=== PATIENT | male | born 1950 | race Caucasian/White ===

== ENCOUNTER → 2021-05-08 14:51 | Outpatient (BNVA) | payer OTHER, SELFPAY | PROVIDERS: PCP Nurse Practitioner; Visit Provider Internal Medicine | DX: D50.9 Iron deficiency anemia, unspecified (principal); Z01.812 Encounter for preprocedural laboratory examination; Z20.822 Contact with and (suspected) exposure to COVID-19 | CPT/HCPCS: 87635 ==

== ENCOUNTER 2021-05-14 08:54 | Day surgery (SDC) | payer OTHER, SELFPAY ==
[2021-05-10 09:27] VITALS: BMI 26.4
--- NOTE | 2021-05-14 09:00 | W.PM.OPSFHP ---
Same Day Surgery H&P Indication for Procedure/HPI DATE OF PROCEDURE: May 14, 2021 CHIEF COMPLAINT/INDICATIONFOR SURGICAL PROCEDURE: Iron deficiency anemia PREOP DIAGNOSIS: iron def anemia PLANNED PROCEDRUE: Operation Date: 05/14/21 10:30 Proposed Procedures p EGD/colon 99221 00039 D50.9(Not Applicable) - Alonzo Guzman MD s Colonoscopy(Not Applicable) - Alonzo Guzman MD Medications/Allergies* Home Medications Medication Instructions Recorded Confirmed Type Vitamin D3 25 mg PO DAILY 05/10/21 05/10/21 History iron 50 mg PO DAILY 05/10/21 05/10/21 History zinc 50 mg PO DAILY 05/10/21 05/10/21 History Allergies/Adverse Reactions Allergy/AdvReac Type Severity Reaction Status Date / Time chloramphenicol Allergy Intermediate Unknown Verified 05/10/21 09:13 Penicillins Allergy Intermediate unknown Verified 05/10/21 09:13 Pertinent History/Comorbid Conditions* Family History (Updated 05/02/21 @ 09:14 by MALIHA Handy) Diabetes Mother Cancer Social History Smoking and tobacco status: never smoked Alcohol intake: current Alcohol intake frequency: holidays/special occasions only Alcohol type: wine Desire information about alcohol rehabilitation?: Yes Adopted: No Marital status: Number of children: 2 service: Yes History of recent travel: No Pertinent Exam Findings alert, oriented x 3, clear to auscultation bilaterally, regular rate & rhythm, operative site marked and procedure specific exam findings Recommendations Surgery/Procedure today Coding Level of Care Code Acute [employer] for Mo Biswas
--- NOTE | 2021-05-14 09:11 | ANES.PREANE2 ---
Pre-Anesthetic Assessment Pre-Anesthetic Assessment: Height/Weight: Height 1.75 m Weight 81.193 kg Preop Diagnosis: iron def anemia Proposed Procedure: Operation Date: 05/14/21 10:30 Proposed Procedures p EGD/colon 09580 [id number] D50.9(Not Applicable) - Alonzo Guzman MD s Colonoscopy(Not Applicable) - Alonzo Guzman MD Familial anesthetic complications: None Was Beta Mandi taken within 24 hours: N/A Was Clonidine taken within 24 hours: N/A Last intake: > 8 hrs Social: Social History: No alcohol and No tobacco Exam: Pre-Anes Outpt Exam: alert, oriented x 3, clear to auscultation bilaterally and regular rate & rhythm Airway: Cervical ROM: WNL MP: 2 Dentition: Full CV/HEM: CV/HEM: Anemia Musc/skel: Comments: TKA Anesthetic Plan: ASA status: 2 Anesthesia: MAC Risk of > 500 ml blood loss (7ml/kg in children): No PFSH Anesthesia PFSH: Family History (Updated 05/02/21 @ 09:14 by MALIHA Handy) Mother Diabetes Other Cancer Social History (Updated 05/02/21 @ 09:15 by MALIHA Handy) Smoking and tobacco status: never smoked Alcohol intake: current Alcohol intake frequency: holidays/special occasions only Alcohol type: wine Desire information about alcohol rehabilitation?: Yes Adopted: No Marital status: Number of children: 2 service: Yes History of recent travel: No Data Anesthesia Cardiac Studies: No Data to Display
[2021-05-14 09:27] VITALS: BP 126/93; PULSE 83; RESP 16; TEMP 36.7; O2SAT 96
[2021-05-14] MEDS: sodium chloride 0.9% 1,000 ML 30 ML IV (09:32)
[2021-05-14 10:41] VITALS: BP 111/76; PULSE 57; RESP 16; TEMP 36.1; O2SAT 99
[2021-05-14 10:55] VITALS: BP 118/87; PULSE 63; RESP 16; O2SAT 97
--- NOTE | 2021-05-14 15:58 | ANE.PACU2 ---
Inpatient post-anesthesia follow up: Airway intact: Yes Vital signs: Temperature 97 F Pulse Rate 63 Respiratory Rate 16 Blood Pressure 118/87 Pulse Oximetry 97 Oxygen Delivery Me thod Room Air Oxygen Flow Rate 2 Fraction of Inspir ed Oxygen Hydration adequate: Yes Nausea and vomiting: No Pain level: 2 Mental status: Baseline
[2021-05-15 12:57] LABS: H. Pylori / CLO Test Negative
== END 2021-05-14 11:10 | disposition home or self-care (01) ==
PROVIDERS: PCP Nurse Practitioner; Visit Provider Internal Medicine
PROC: 0DJ08ZZ Inspection of Upper Intestinal Tract, Via Natural or Artificial Opening Endoscopic (ICD-10-PCS; CPT 43235; principal; 2021-05-14 10:30)
PROC: 0DJD8ZZ Inspection of Lower Intestinal Tract, Via Natural or Artificial Opening Endoscopic (ICD-10-PCS; CPT 45378; 2021-05-14 10:30)
DX: D50.9 Iron deficiency anemia, unspecified (principal); K57.30 Diverticulosis of large intestine without perforation or abscess without bleeding; K44.9 Diaphragmatic hernia without obstruction or gangrene; K29.70 Gastritis, unspecified, without bleeding; K25.9 Gastric ulcer, unspecified as acute or chronic, without hemorrhage or perforation; Z83.3 Family history of diabetes mellitus
CPT/HCPCS: 43239; 45378; 87077; 96360; 96361; J2704; J7030

== ENCOUNTER → 2021-05-16 09:05 | Outpatient (BNVA) | payer OTHER, SELFPAY | PROVIDERS: PCP Nurse Practitioner; Visit Provider Urology | DX: N40.1 Benign prostatic hyperplasia with lower urinary tract symptoms (principal); N52.9 Male erectile dysfunction, unspecified; R97.20 Elevated prostate specific antigen [PSA] | CPT/HCPCS: 81003; 84153; 87077; 87086; 87184 ==

== ENCOUNTER → 2021-11-13 09:33 | Outpatient (BNVA) | payer OTHER, SELFPAY | PROVIDERS: PCP Nurse Practitioner; Visit Provider Urology | DX: N52.9 Male erectile dysfunction, unspecified (principal); R97.20 Elevated prostate specific antigen [PSA] | CPT/HCPCS: 81003; 84153 ==

== ENCOUNTER → 2022-02-19 11:22 | Outpatient (BNVA) | payer OTHER, SELFPAY | PROVIDERS: PCP Nurse Practitioner; Visit Provider Psychiatry & Neurology Psychiatry | DX: F43.10 Post-traumatic stress disorder, unspecified (principal) | CPT/HCPCS: 90792 ==

== ENCOUNTER 2022-05-16 11:11 | Outpatient (CLI) | payer OTHER, SELFPAY ==
[2022-05-16 12:26] LABS: Prostate Specific AG Urology 8.23 ng/mL (0-4)
== END 2022-05-16 11:12 | disposition home or self-care (01) ==
LOC: LAB 11:39
PROVIDERS: PCP Nurse Practitioner; Visit Provider Urology
DX: R97.20 Elevated prostate specific antigen [PSA] (principal); R82.71 Bacteriuria; N40.1 Benign prostatic hyperplasia with lower urinary tract symptoms; N52.9 Male erectile dysfunction, unspecified
CPT/HCPCS: 51798; 81003; 84153; 87077; 87086; 87186; 99213

== ENCOUNTER → 2022-11-25 15:09 | Outpatient (BNVA) | payer OTHER, SELFPAY | PROVIDERS: PCP Nurse Practitioner; Visit Provider Urology | DX: N40.1 Benign prostatic hyperplasia with lower urinary tract symptoms (principal); R97.20 Elevated prostate specific antigen [PSA]; N52.9 Male erectile dysfunction, unspecified; R82.71 Bacteriuria | CPT/HCPCS: 81003; 99213 ==

== ENCOUNTER → 2024-04-07 13:51 | Outpatient (BNVA) | payer OTHER, SELFPAY | PROVIDERS: PCP Nurse Practitioner; Referring Provider Nurse Practitioner; Visit Provider Surgery | DX: D50.9 Iron deficiency anemia, unspecified (principal) | CPT/HCPCS: 99203 ==

== ENCOUNTER 2024-05-04 09:39 | Outpatient (CLI) | payer OTHER, SELFPAY | END 2024-05-04 09:40 | disposition home or self-care (01) | LOC: LAB 09:39 | PROVIDERS: PCP Nurse Practitioner; Visit Provider Surgery | DX: D50.9 Iron deficiency anemia, unspecified (principal) | CPT/HCPCS: 82274 ==

== ENCOUNTER 2024-06-01 08:53 | Oncology outpatient (recurring) (ONCR) | payer OTHER, SELFPAY ==
[2024-06-01 11:13] LABS: Basophils # 0.1 10^3/uL (0.0-0.1); Basophils % 1.2 %; Eosinophils # 0.2 10^3/uL (0.0-0.8); Eosinophils % 3.5 %; Hematocrit 42.5 % (37-53); Lymphocytes # 1.3 10^3/uL (0.8-4.8); Lymphocytes % 22.3 %; Mean Corpuscular HGB Conc 29.9 g/dL (30-55); Mean Corpuscular Hemoglobin 23.3 pg (27-33); Mean Corpuscular Volume 78.1 fl (82-101); Mean Platelet Volume 9.1 fL (7.4-10.4); Monocytes # 0.8 10^3/uL (0.2-0.9); Monocytes % 14.3 %; Neutrophils # 3.36 10^3/uL (1.8-7.7); Neutrophils % 58.5 %; Nucleated Red Blood Cells % 0 %; Platelet Count 356 10^3/cmm (157-399); Red Blood Count 5.44 10^6/uL (3.85-5.65); Red Cell Distribution Width 17.4 % (12.1-15.1); Reticulocyte % 1.1 % (0.5-2.0); White Blood Count 5.74 10^3/uL (3.29-11.43)
[2024-06-01 11:24] LABS: Erythrocyte Sedimentation Rate 4 mm/hr (0-10)
[2024-06-01 11:51] LABS: Alanine Aminotransferase 23 U/L (0-41); Albumin Level 4.4 g/dL (3.5-5.2); Alkaline Phosphatase 87 U/L (40-130); Anion Gap 14.4 (5-19); Aspartate Amino Transferase 21 U/L (0-40); Blood Urea Nitrogen 22 mg/dL (8-23); Calcium 9.4 mg/dL (8.5-10.5); Carbon Dioxide 27 mmol/L (22-29); Chloride 102 mmol/L (98-107); Ferritin 13 ng/mL (30-400); Globulin 2.5 g/dL (1.3-4.6); Glucose 91 mg/dL (65-115); Iron 69 ug/dL (59-158); Lactate Dehydrogenase 150 U/L (135-225); Osmolality Calculated 291 mOsm/kg (285-295); Percent Saturation 15.2 % (20-50); Potassium 4.4 mmol/L (3.5-5.1); Sodium 139 mmol/L (136-145); Total Bilirubin 0.3 mg/dL (0.15-1.2); Total Iron Binding Capacity 453 mcg/dl; Total Protein 6.9 g/dL (6.6-8.7); Unsaturated Iron Binding 384 ug/dL (112-347)
[2024-06-01 11:53] LABS: Creatinine Clr Calc Pharmacy 53.8836
[2024-06-01 11:57] LABS: LAB Peripheral Smear Sent for Review
[2024-06-01 12:04] LABS: Folate Level 7.5 ng/mL (4.5-32.2); Vitamin B12 687 pg/mL (232-1245)
[2024-06-02 07:20] LABS: PROTEIN, TOTAL 6.9 g/dL (6.1-8.1)
[2024-06-02 12:09] LABS: KAPPA LIGHT CHAIN, FREE, SERUM 21.7 mg/L (3.3-19.4); KAPPA/LAMBDA LIGHT CHAINS FREE 1.63 (0.26-1.65); LAMBDA LIGHT CHAIN, FREE, SERU 13.3 mg/L (5.7-26.3)
[2024-06-03 14:40] LABS: ALBUMIN 4.5 g/dL (3.8-4.8); ALPHA 1 GLOBULIN 0.3 g/dL (0.2-0.3); ALPHA 2 GLOBULIN 0.7 g/dL (0.5-0.9); BETA 1 GLOBULIN 0.5 g/dL (0.4-0.6); BETA 2 GLOBULIN 0.3 g/dL (0.2-0.5); GAMMA GLOBULIN 0.6 g/dL (0.8-1.7)
[2024-06-04 20:26] LABS: Immunofixation Serum Normal pattern.
== END 2024-06-14 23:59 | disposition home or self-care (01) ==
PROVIDERS: PCP Nurse Practitioner; Visit Provider Internal Medicine Medical Oncology
DX: D64.9 Anemia, unspecified (principal)
CPT/HCPCS: 36415; 80053; 82607; 82728; 82746; 83010; 83540; 83550; 83615; 83883; 84155; 84165; 85025; 85045; 85651; 86140; 86334; 99204

== ENCOUNTER 2024-07-06 09:29 | Oncology outpatient (recurring) (ONCR) | payer OTHER, SELFPAY ==
[2024-07-06 10:02] LABS: Basophils # 0.1 10^3/uL (0.0-0.1); Basophils % 1.3 %; Eosinophils # 0.2 10^3/uL (0.0-0.8); Hematocrit 38.9 % (37-53); Lymphocytes # 1.4 10^3/uL (0.8-4.8); Lymphocytes % 30.5 %; Mean Corpuscular HGB Conc 30.3 g/dL (30-55); Mean Corpuscular Hemoglobin 23.8 pg (27-33); Mean Corpuscular Volume 78.6 fl (82-101); Mean Platelet Volume 9.2 fL (7.4-10.4); Monocytes # 0.6 10^3/uL (0.2-0.9); Monocytes % 13.2 %; Neutrophils # 2.31 10^3/uL (1.8-7.7); Neutrophils % 49.8 %; Nucleated Red Blood Cells % 0 %; Platelet Count 299 10^3/cmm (157-399); Red Blood Count 4.95 10^6/uL (3.85-5.65); Red Cell Distribution Width 16.8 % (12.1-15.1); White Blood Count 4.63 10^3/uL (3.29-11.43)
[2024-07-06 10:17] LABS: Alanine Aminotransferase 22 U/L (0-41); Albumin Level 4.2 g/dL (3.5-5.2); Alkaline Phosphatase 77 U/L (40-130); Anion Gap 14.4 (5-19); Aspartate Amino Transferase 23 U/L (0-40); Blood Urea Nitrogen 26 mg/dL (8-23); Calcium 8.6 mg/dL (8.5-10.5); Carbon Dioxide 27 mmol/L (22-29); Chloride 104 mmol/L (98-107); Ferritin 12 ng/mL (30-400); Glucose 100 mg/dL (65-115); Iron 43 ug/dL (59-158); Osmolality Calculated 297 mOsm/kg (285-295); Percent Saturation 9.9 % (20-50); Potassium 4.4 mmol/L (3.5-5.1); Sodium 141 mmol/L (136-145); Total Bilirubin 0.3 mg/dL (0.15-1.2); Total Iron Binding Capacity 434 mcg/dl; Total Protein 6.2 g/dL (6.6-8.7); Unsaturated Iron Binding 391 ug/dL (112-347)
== END 2024-07-15 23:59 | disposition home or self-care (01) ==
PROVIDERS: PCP Nurse Practitioner; Visit Provider Internal Medicine Medical Oncology
DX: D64.9 Anemia, unspecified (principal); D50.9 Iron deficiency anemia, unspecified
CPT/HCPCS: 36415; 80053; 82728; 83540; 83550; 85025; 99214

== ENCOUNTER 2024-08-03 09:23 | Oncology outpatient (recurring) (ONCR) | payer OTHER, SELFPAY ==
[2024-08-03 09:46] LABS: Basophils # 0.1 10^3/uL (0.0-0.1); Eosinophils # 0.2 10^3/uL (0.0-0.8); Eosinophils % 4.9 %; Hematocrit 42.3 % (37-53); Lymphocytes # 1.5 10^3/uL (0.8-4.8); Lymphocytes % 30.6 %; Mean Corpuscular HGB Conc 30.7 g/dL (30-55); Mean Corpuscular Hemoglobin 25.8 pg (27-33); Mean Corpuscular Volume 84.1 fl (82-101); Mean Platelet Volume 8.9 fL (7.4-10.4); Monocytes # 0.6 10^3/uL (0.2-0.9); Monocytes % 11.5 %; Neutrophils # 2.51 10^3/uL (1.8-7.7); Neutrophils % 51.6 %; Nucleated Red Blood Cells % 0 %; Platelet Count 287 10^3/cmm (157-399); Red Blood Count 5.03 10^6/uL (3.85-5.65); Red Cell Distribution Width 21.2 % (12.1-15.1); White Blood Count 4.87 10^3/uL (3.29-11.43)
[2024-08-03 10:03] LABS: Alanine Aminotransferase 21 U/L (0-41); Albumin Level 4.1 g/dL (3.5-5.2); Alkaline Phosphatase 75 U/L (40-130); Anion Gap 12.2 (5-19); Aspartate Amino Transferase 21 U/L (0-40); Blood Urea Nitrogen 29 mg/dL (8-23); Calcium 9.2 mg/dL (8.5-10.5); Carbon Dioxide 29 mmol/L (22-29); Chloride 103 mmol/L (98-107); Ferritin 33 ng/mL (30-400); Globulin 2.4 g/dL (1.3-4.6); Glucose 90 mg/dL (65-115); Iron 209 ug/dL (59-158); Osmolality Calculated 295 mOsm/kg (285-295); Percent Saturation 51.4 % (20-50); Potassium 4.2 mmol/L (3.5-5.1); Sodium 140 mmol/L (136-145); Total Bilirubin 0.4 mg/dL (0.15-1.2); Total Iron Binding Capacity 406 mcg/dl; Total Protein 6.5 g/dL (6.6-8.7); Unsaturated Iron Binding 197 ug/dL (112-347)
== END 2024-08-14 23:59 | disposition home or self-care (01) ==
PROVIDERS: Nurse Practitioner Family; PCP Nurse Practitioner; Visit Provider Internal Medicine Hematology & Oncology
DX: D50.9 Iron deficiency anemia, unspecified; E61.1 Iron deficiency
CPT/HCPCS: 36415; 80053; 82728; 83540; 83550; 85025; 99213

== ENCOUNTER 2024-09-14 06:00 | Oncology outpatient (recurring) (ONCR) | payer OTHER, SELFPAY ==
[2024-09-14 09:57] LABS: Basophils # 0.1 10^3/uL (0.0-0.1); Eosinophils # 0.3 10^3/uL (0.0-0.8); Eosinophils % 5.9 %; Hematocrit 42.3 % (37-53); Lymphocytes # 1.7 10^3/uL (0.8-4.8); Lymphocytes % 32.6 %; Mean Corpuscular HGB Conc 31.4 g/dL (30-55); Mean Corpuscular Hemoglobin 26.8 pg (27-33); Mean Corpuscular Volume 85.3 fl (82-101); Mean Platelet Volume 8.9 fL (7.4-10.4); Monocytes # 0.7 10^3/uL (0.2-0.9); Neutrophils # 2.34 10^3/uL (1.8-7.7); Neutrophils % 46.3 %; Nucleated Red Blood Cells % 0 %; Platelet Count 285 10^3/cmm (157-399); Red Blood Count 4.96 10^6/uL (3.85-5.65); Red Cell Distribution Width 16.7 % (12.1-15.1); White Blood Count 5.06 10^3/uL (3.29-11.43)
[2024-09-14 10:17] LABS: Anion Gap 12.4 (5-19); Blood Urea Nitrogen 26 mg/dL (8-23); Carbon Dioxide 27 mmol/L (22-29); Chloride 106 mmol/L (98-107); Potassium 4.4 mmol/L (3.5-5.1); Sodium 141 mmol/L (136-145)
[2024-09-14 10:18] LABS: Alanine Aminotransferase 28 U/L (0-41); Albumin Level 4.3 g/dL (3.5-5.2); Alkaline Phosphatase 74 U/L (40-130); Aspartate Amino Transferase 26 U/L (0-40); Calcium 9.5 mg/dL (8.5-10.5); Ferritin 17 ng/mL (30-400); Globulin 2.3 g/dL (1.3-4.6); Glucose 94 mg/dL (65-115); Iron 79 ug/dL (59-158); Osmolality Calculated 297 mOsm/kg (285-295); Total Bilirubin 0.5 mg/dL (0.15-1.2); Total Protein 6.6 g/dL (6.6-8.7)
[2024-09-17 15:18] LABS: Iron 70 ug/dL (59-158); Percent Saturation 15.9 % (20-50); Total Iron Binding Capacity 438 mcg/dl; Unsaturated Iron Binding 368 ug/dL (112-347)
== END 2024-09-14 23:59 | disposition home or self-care (01) ==
LOC: ONCMED 11-05 08:07
PROVIDERS: Nurse Practitioner Family; PCP Nurse Practitioner; Visit Provider Internal Medicine Hematology & Oncology
DX: D64.9 Anemia, unspecified (principal); D50.9 Iron deficiency anemia, unspecified; E61.1 Iron deficiency
CPT/HCPCS: 80053; 82728; 83540; 83550; 85025

== ENCOUNTER 2024-11-09 09:51 | Oncology outpatient (recurring) (ONCR) | payer OTHER, SELFPAY ==
[2024-11-09 10:33] LABS: Basophils % 0.9 %; Eosinophils # 0.2 10^3/uL (0.0-0.8); Eosinophils % 5.4 %; Hematocrit 44.5 % (37-53); Lymphocytes # 1.4 10^3/uL (0.8-4.8); Lymphocytes % 31.5 %; Mean Corpuscular HGB Conc 31.9 g/dL (30-55); Mean Corpuscular Hemoglobin 27.3 pg (27-33); Mean Corpuscular Volume 85.6 fl (82-101); Mean Platelet Volume 8.9 fL (7.4-10.4); Monocytes # 0.7 10^3/uL (0.2-0.9); Monocytes % 16.1 %; Neutrophils # 1.96 10^3/uL (1.8-7.7); Neutrophils % 45.9 %; Nucleated Red Blood Cells % 0 %; Platelet Count 295 10^3/cmm (157-399); Red Cell Distribution Width 14.9 % (12.1-15.1); White Blood Count 4.28 10^3/uL (3.29-11.43)
[2024-11-09 10:49] LABS: Alanine Aminotransferase 27 U/L (0-41); Albumin Level 4.2 g/dL (3.5-5.2); Alkaline Phosphatase 70 U/L (40-130); Anion Gap 14.7 (5-19); Aspartate Amino Transferase 24 U/L (0-40); Blood Urea Nitrogen 24 mg/dL (8-23); Calcium 9.5 mg/dL (8.5-10.5); Carbon Dioxide 27 mmol/L (22-29); Chloride 107 mmol/L (98-107); Creatinine Clr Calc Pharmacy 53.3981; Globulin 2.4 g/dL (1.3-4.6); Glucose 95 mg/dL (65-115); Osmolality Calculated 302 mOsm/kg (285-295); Potassium 4.7 mmol/L (3.5-5.1); Sodium 144 mmol/L (136-145); Total Bilirubin 0.3 mg/dL (0.15-1.2); Total Protein 6.6 g/dL (6.6-8.7)
[2024-11-09 12:00] LABS: Ferritin 17 ng/mL (30-400); Iron 47 ug/dL (59-158); Percent Saturation 10.6 % (20-50); Total Iron Binding Capacity 440 mcg/dl; Unsaturated Iron Binding 393 ug/dL (112-347)
== END 2024-11-12 23:59 | disposition home or self-care (01) ==
PROVIDERS: Nurse Practitioner Family; PCP Nurse Practitioner; Visit Provider Internal Medicine Medical Oncology
DX: D64.9 Anemia, unspecified (principal); Z87.891 Personal history of nicotine dependence; Z79.899 Other long term (current) drug therapy
CPT/HCPCS: 36415; 80053; 82728; 83540; 83550; 85025; 99213

== ENCOUNTER 2024-12-20 08:08 | Oncology outpatient (recurring) (ONCR) | payer OTHER, SELFPAY ==
[2024-12-20 08:44] LABS: Basophils % 0.8 %; Eosinophils # 0.2 10^3/uL (0.0-0.8); Eosinophils % 4.7 %; Hematocrit 43.3 % (37-53); Lymphocytes # 1.5 10^3/uL (0.8-4.8); Lymphocytes % 29.5 %; Mean Corpuscular HGB Conc 31.6 g/dL (30-55); Mean Corpuscular Hemoglobin 26.8 pg (27-33); Mean Corpuscular Volume 84.7 fl (82-101); Mean Platelet Volume 8.9 fL (7.4-10.4); Monocytes # 0.7 10^3/uL (0.2-0.9); Monocytes % 12.8 %; Neutrophils # 2.68 10^3/uL (1.8-7.7); Nucleated Red Blood Cells % 0 %; Platelet Count 294 10^3/cmm (157-399); Red Blood Count 5.11 10^6/uL (3.85-5.65); Red Cell Distribution Width 15.8 % (12.1-15.1); White Blood Count 5.15 10^3/uL (3.29-11.43)
[2024-12-20 09:07] LABS: Ferritin 13 ng/mL (30-400); Iron 36 ug/dL (59-158); Percent Saturation 8.7 % (20-50); Total Iron Binding Capacity 413 mcg/dl; Unsaturated Iron Binding 377 ug/dL (112-347)
== END 2025-01-12 23:59 | disposition home or self-care (01) ==
PROVIDERS: Nurse Practitioner Family; PCP Nurse Practitioner; Visit Provider Internal Medicine Medical Oncology
DX: E61.1 Iron deficiency (principal)
CPT/HCPCS: 36415; 82728; 83540; 83550; 85025

== ENCOUNTER 2025-02-10 11:30 | Oncology outpatient (recurring) (ONCR) | payer OTHER, SELFPAY ==
[2025-02-01 13:36] LABS: Basophils % 0.8 %; Eosinophils # 0.3 10^3/uL (0.0-0.8); Eosinophils % 4.9 %; Hematocrit 41.9 % (37-53); Lymphocytes # 1.5 10^3/uL (0.8-4.8); Lymphocytes % 29.9 %; Mean Corpuscular HGB Conc 32.7 g/dL (30-55); Mean Corpuscular Hemoglobin 28.4 pg (27-33); Mean Corpuscular Volume 86.7 fl (82-101); Mean Platelet Volume 9.3 fL (7.4-10.4); Monocytes # 0.7 10^3/uL (0.2-0.9); Monocytes % 12.6 %; Neutrophils # 2.66 10^3/uL (1.8-7.7); Neutrophils % 51.6 %; Nucleated Red Blood Cells % 0 %; Platelet Count 317 10^3/cmm (157-399); Red Blood Count 4.83 10^6/uL (3.85-5.65); Red Cell Distribution Width 14.5 % (12.1-15.1); White Blood Count 5.15 10^3/uL (3.29-11.43)
[2025-02-01 13:52] LABS: Alanine Aminotransferase 27 U/L (0-41); Albumin Level 4.2 g/dL (3.5-5.2); Alkaline Phosphatase 67 U/L (40-130); Anion Gap 15.3 (5-19); Aspartate Amino Transferase 27 U/L (0-40); Blood Urea Nitrogen 21 mg/dL (8-23); Calcium 8.9 mg/dL (8.5-10.5); Carbon Dioxide 25 mmol/L (22-29); Chloride 106 mmol/L (98-107); Creatinine Clr Calc Pharmacy 62.9578; Ferritin 13 ng/mL (30-400); Globulin 2.1 g/dL (1.3-4.6); Glucose 82 mg/dL (65-115); Iron 59 ug/dL (59-158); Osmolality Calculated 296 mOsm/kg (285-295); Potassium 4.3 mmol/L (3.5-5.1); Sodium 142 mmol/L (136-145); Total Bilirubin 0.4 mg/dL (0.15-1.2); Total Iron Binding Capacity 419 mcg/dl; Total Protein 6.3 g/dL (6.6-8.7); Unsaturated Iron Binding 360 ug/dL (112-347)
[2025-02-01] MEDS: sodium chloride 0.9% 250 ML 75 ML IV (14:32)
[2025-02-01] MEDS: iron sucrose 200 MG in sodium chloride 0.9% (100 ml) 100 ML 220 MG IV (14:33)
[2025-02-04] MEDS: iron sucrose 200 MG in sodium chloride 0.9% (100 ml) 100 ML 220 MG IV (09:26)
[2025-02-04 09:54] VITALS: BP 119/73; PULSE 63; RESP 16; TEMP 36.7; O2SAT 97
[2025-02-08] MEDS: iron sucrose 200 MG in sodium chloride 0.9% (100 ml) 100 ML IV (13:34)
[2025-02-08 14:10] VITALS: BP 118/68; PULSE 66; RESP 16; O2SAT 96
[2025-02-10] MEDS: iron sucrose 200 MG in sodium chloride 0.9% (100 ml) 100 ML IV (12:15)
[2025-02-10 12:57] VITALS: BP 136/76; PULSE 86; RESP 16; O2SAT 98
== END 2025-02-12 23:59 | disposition home or self-care (01) ==
PROVIDERS: Internal Medicine Medical Oncology; Nurse Practitioner Family; PCP Nurse Practitioner; Visit Provider Internal Medicine
DX: E61.1 Iron deficiency; Z79.899 Other long term (current) drug therapy; Z53.9 Procedure and treatment not carried out, unspecified reason
CPT/HCPCS: 80053; 82728; 83540; 83550; 85025; 96365; 99214; J1756; J7050

== ENCOUNTER 2025-02-14 12:51 | Oncology outpatient (recurring) (ONCR) | payer OTHER, SELFPAY ==
[2025-02-14] MEDS: iron sucrose 200 MG in sodium chloride 0.9% (100 ml) 100 ML 220 MG IV (13:34)
[2025-02-14 14:12] VITALS: BP 121/72; PULSE 74; RESP 18
== END 2025-03-14 23:59 | disposition home or self-care (01) ==
LOC: ONCMED 12:51
PROVIDERS: PCP Nurse Practitioner; Visit Provider Internal Medicine Medical Oncology
DX: E61.1 Iron deficiency (principal); Z79.899 Other long term (current) drug therapy
CPT/HCPCS: 96365; J1756

== ENCOUNTER 2025-05-03 12:51 | Oncology outpatient (recurring) (ONCR) | payer OTHER, SELFPAY ==
[2025-05-03 13:06] LABS: Hematocrit 45.9 % (37-53); Hemoglobin 15.80 g/dL (11.27-16.99); Mean Corpuscular HGB Conc 34.4 g/dL (30-55); Mean Corpuscular Hemoglobin 30.3 pg (27-33); Mean Corpuscular Volume 88.1 fl (82-101); Nucleated Red Blood Cells % 0 %; Platelet Count 248 10^3/cmm (157-399); Red Blood Count 5.21 10^6/uL (3.85-5.65); White Blood Count 6.04 10^3/uL (3.29-11.43)
[2025-05-03 13:27] LABS: Alanine Aminotransferase 21 U/L (0-41); Albumin Level 4.2 g/dL (3.5-5.2); Alkaline Phosphatase 78 U/L (40-130); Anion Gap 16.4 (5-19); Aspartate Amino Transferase 22 U/L (0-40); Blood Urea Nitrogen 22 mg/dL (8-23); Calcium 9.2 mg/dL (8.5-10.5); Carbon Dioxide 23 mmol/L (22-29); Chloride 106 mmol/L (98-107); Creatinine Clr Calc Pharmacy 68.4345; Ferritin 81 ng/mL (30-400); Globulin 2.4 g/dL (1.3-4.6); Glucose 124 mg/dL (65-115); Osmolality Calculated 297 mOsm/kg (285-295); Potassium 4.4 mmol/L (3.5-5.1); Sodium 141 mmol/L (136-145); Total Protein 6.6 g/dL (6.6-8.7)
[2025-05-03 14:57] LABS: Iron 87 ug/dL (59-158); Total Iron Binding Capacity 329 mcg/dl; Unsaturated Iron Binding 242 ug/dL (112-347)
== END 2025-05-15 23:59 | disposition home or self-care (01) ==
PROVIDERS: Nurse Practitioner; PCP Nurse Practitioner; Visit Provider Internal Medicine Medical Oncology
DX: D64.9 Anemia, unspecified (principal); D50.9 Iron deficiency anemia, unspecified; Z79.899 Other long term (current) drug therapy; Z87.891 Personal history of nicotine dependence
CPT/HCPCS: 36415; 80053; 82728; 83540; 83550; 85025; 99214

== ENCOUNTER 2025-08-02 11:55 | Oncology outpatient (recurring) (ONCR) | payer OTHER, SELFPAY ==
[2025-08-02 12:22] LABS: Hematocrit 47.2 % (37-53); Hemoglobin 15.90 g/dL (11.27-16.99); Mean Corpuscular HGB Conc 33.7 g/dL (30-55); Mean Corpuscular Hemoglobin 30.9 pg (27-33); Mean Corpuscular Volume 91.7 fl (82-101); Nucleated Red Blood Cells % 0 %; Platelet Count 263 10^3/cmm (157-399); Red Blood Count 5.15 10^6/uL (3.85-5.65); White Blood Count 6.00 10^3/uL (3.29-11.43)
[2025-08-02 12:53] LABS: Alanine Aminotransferase 19 U/L (0-41); Albumin Level 4.2 g/dL (3.5-5.2); Alkaline Phosphatase 71 U/L (40-130); Anion Gap 10.3 (5-19); Aspartate Amino Transferase 19 U/L (0-40); Blood Urea Nitrogen 24 mg/dL (8-23); Calcium 9.2 mg/dL (8.5-10.5); Carbon Dioxide 29 mmol/L (22-29); Chloride 103 mmol/L (98-107); Globulin 2.2 g/dL (1.3-4.6); Glucose 105 mg/dL (65-115); Iron 170 ug/dL (59-158); Osmolality Calculated 290 mOsm/kg (285-295); Potassium 4.3 mmol/L (3.5-5.1); Sodium 138 mmol/L (136-145); Total Iron Binding Capacity 358 mcg/dl; Total Protein 6.4 g/dL (6.6-8.7); Unsaturated Iron Binding 188 ug/dL (112-347)
== END 2025-08-14 23:59 | disposition home or self-care (01) ==
PROVIDERS: PCP Nurse Practitioner; Visit Provider Internal Medicine Medical Oncology
DX: E61.1 Iron deficiency (principal); R03.0 Elevated blood-pressure reading, without diagnosis of hypertension; Z79.899 Other long term (current) drug therapy
CPT/HCPCS: 36415; 80053; 82728; 83540; 83550; 85025; 99213